=== PATIENT | male | born 1980 | race Two or more races ===

== ENCOUNTER 2019-10-11 18:01 | Emergency (ER) | payer MEDICAID ==
[~2019-10-11] VITALS: Ht 182.9 cm; Wt 68.3 kg
[2019-10-11] MEDS ORDERED: DEXAMETHASONE 4 MG/ML, 5ML IM ONE (19:00)
[2019-10-11] MEDS ORDERED: DEXAMETHASONE 4 MG/ML, 1ML ONE (19:18)
== END 2019-10-11 19:58 | disposition home or self-care (01) ==
LOC: ED 19:20
DX: J02.0 Streptococcal pharyngitis (principal)
CPT/HCPCS: 87880; 96372; 99283; J1100